=== PATIENT | female | born 1980 | race Two or more races ===

== ENCOUNTER 2022-03-27 17:28 | Emergency (ER) | payer MEDICAID, OTHER ==
[~2022-03-27] VITALS: Ht 152.4 cm; Wt 60.0 kg
[2022-03-27 18:41] LABS: Basophils # (auto) 0.1 10 ^3/uL (0-0.2); Eosinophils % (auto) 1.4 % (0.0-7.0); Hematocrit 32.7 % (36.0-46.0); Neutrophils # (auto) 8.8 10 ^3/uL (1.6-8.6)
[2022-03-27 18:43] LABS: Basophils % (auto) 0.9 % (0.0-2.0); Eosinophils # (auto) 0.2 10 ^3/uL (0-0.8); Hemoglobin 10.1 g/dL (12.2-16.2); Lymphocytes # (auto) 1.4 10 ^3/uL (0.4-5.4); Lymphocytes % (auto) 12.8 % (10.0-50.0); Mean Corpuscular Hemoglobin 23.1 pg (28.0-32.0); Mean Corpuscular Hgb Conc. 30.8 g/dL (32.0-36.0); Mean Corpuscular Volume 75.2 fL (80.0-100.0); Monocytes # (auto) 0.5 10 ^3/uL (0-1.3); Monocytes % (auto) 4.6 % (0.0-12.0); Neutrophils % (auto) 80.3 % (37.0-80.0); Red Blood Cells 4.35 10^6/uL (4.0-5.20); Red Cell Distribution Width 30.3 % (11.8-14.3)
[2022-03-27 18:56] LABS: Albumin 3.3 g/dL (3.4-5.0); Calcium 9.1 mg/dL (8.5-10.1); INR 0.97 (0.9-1.15); Partial Thromboplastin Time 24.2 sec (24.6-33.4); Potassium 3.3 mmol/L (3.5-5.1)
[2022-03-27 19:00] LABS: BUN/Creatinine Ratio 11.2; Bilirubin, Total 0.2 mg/dL (0.2-1.0); Total Protein 7.2 g/dL (6.4-8.2)
[2022-03-27] MEDS ORDERED: ONDANSETRON HCL 4 MG/2 ML VIAL IV ONE (20:00)
[2022-03-27] MEDS ORDERED: MORPHINE SULFATE 4 MG/ML SYR/VIAL IV ONE (20:00)
[2022-03-27] MEDS ORDERED: HYDROmorphone HCL 2 MG/ML VL/or syr IV ONE (23:45)
[2022-03-28] MEDS ORDERED: HYDROmorphone HCL 2 MG/ML VL/or syr IV ONE ×3 (04:00→12:15)
[2022-03-28 12:16] VITALS: BP 124/85
== END 2022-03-28 12:34 | disposition short-term general hospital (02) ==
LOC: EDBD 17:28 → ER 17:31
DX: S72.302A Unspecified fracture of shaft of left femur, initial encounter for closed fracture (principal); N18.9 Chronic kidney disease, unspecified; Z85.41 Personal history of malignant neoplasm of cervix uteri; Z20.822 Contact with and (suspected) exposure to COVID-19; W18.39XA Other fall on same level, initial encounter; Y93.89 Activity, other specified; Y92.89 Other specified places as the place of occurrence of the external cause; Y99.8 Other external cause status
CPT/HCPCS: 36415; 71045; 72170; 73552; 73700; 80053; 85025; 85610; 85730; 87426; 93005; 96374; 96375; 96376; 99285; J1170; J2270; J2405